=== PATIENT | male | born 1985 | race Caucasian/White ===

== ENCOUNTER 2019-03-02 12:41 | Emergency (ER) | payer SELFPAY ==
[~2019-03-02] VITALS: Ht 185.4 cm; Wt 64.9 kg
[2019-03-02 12:47] VITALS: Ht 185.4 cm; Wt 64.9 kg
[2019-03-02 15:50] VITALS: BP 116/74
== END 2019-03-02 15:50 | disposition home or self-care (01) ==
LOC: ED 12:41
DX: J98.01 Acute bronchospasm (principal); J45.901 Unspecified asthma with (acute) exacerbation; Z98.890 Other specified postprocedural states